=== PATIENT | male | born 1960 | race Caucasian/White ===

== ENCOUNTER 2023-11-01 14:27 | Outpatient (OUT) | payer BC, SELFPAY ==
--- NOTE | 2023-11-01 14:53 | P.CN_ITS ---
Consult Note: HPI Data of Consult Patient: new to practice Requesting Physician: Radha Sellers NP Primary Care Provider: Non-Staff Physician, MD Consult Narrative Reason for consult: bilateral knee pain Narrative: Damien Cao a pleasant 63 year old male presents for evaluation and management of chronic bilateral knee pain. Hx of bilateral knee pain greater than 2 years, reports hx of OA. Last xray imaging unavailable at this time but was completed 2 years ago. Patient notices significant increase in pain with standing and walking periods of time. Finds tylenol and aleve mildly beneficial without side effects. Today pain 2/10 increasing to 7/10 by end of day. No history of injection therapy. Has failed to benefit from HEP greater than 6 weeks. cc:: CC: Radha Sellers NP Review of Systems ROS Status of ROS 10 or more systems reviewed and unremark able except as noted in history and below Musculoskeletal Reports: joint pain Exam Constitutional Documenting provider has reviewed patient's vital signs: yes Common normals: no apparent distress, oriented x3, healthy appearing, alert and well nourished General appearance: cooperative HENMT Common normals: normocephalic, hearing grossly normal bilaterally and moist oral mucous membranes Head and scalp: normocephalic Eye Common normals: PERRL Pupil: PERRL Neck & C-Spine Common normals: full ROM General: normal visual inspection Chest Common normals: inspection of chest normal Respiratory Common normals: normal respiratory effort, no retractions and no use of accessory muscles Extremity Right lower extremity: knee joint Left lower extremity: knee joint Other: left knee enlarged diameter mild edema and moderate crepitus on exam, pain with medial and lateral stress testing, no instability noted right knee mildly enlarged diameter no edema mild crepitus on exam, pain with medial and lateral stress testing, no instability noted Neuro Common normals: oriented x3, CN's II-XII intact bilaterally, moves all extremities, no focal motor deficits, no sensory deficits noted, deep tendon reflexes 2+ bilaterally and gait normal Sensorium/orientation: alert Motor exam: strength 5/5 throughout and no movement abnormalities noted Psych Common normals: mental status grossly normal, thought process normal, cooperative, affect normal, speech normal and activity/motor behavior normal Speech: normal speech Thought process: normal thought process Results Additional Findings Additional findings: If on a controlled substance or opioids, I have checked an [place] report on this patient and there are no aberrancies noted in the prescribing history.??If on a controlled substance or opioid a drug screen was completed and reviewed within the last year, and if there has not been a drug screen completed we ordered one today to monitor higher risk, state monitored pain medication use. As part of providing excellent, safe, comprehensive care, the following was completed at our patient's visit: 1. A medication reconciliation and review to ensure accurate knowledge of current/active medications, including asking our patients to inform us about any [id number] medications or herbal remedies/nutritional supplements/alternative remedies. 2. A review to specifically ensure our patients have had annual screening for screening for depression, screening for tobacco use, and screening for unhealthy alcohol use. For concerning screenings had a discussion with the patient, provided patient education, and recommended follow-up with primary care provider when appropriate. If patient noted with a risk of falling, they received education on strength, gait, and balance training to prevent future risk of falling. Assessment and Plan Assessment and Plan (1) Bilateral primary osteoarthritis of knee: (2) Bilateral knee pain: Plan update bilateral knee xray continue HEP as tolerated, engaged in daily walking program bilateral steroid based knee injections in office with Dr Huang f/u after injection
== END 2023-11-01 14:28 | disposition home or self-care (01) ==
LOC: PM 14:27
PROVIDERS: Visit Provider Nurse Practitioner
DX: M17.0 Bilateral primary osteoarthritis of knee (principal); M25.462 Effusion, left knee; M25.461 Effusion, right knee; M25.561 Pain in right knee; M25.562 Pain in left knee
CPT/HCPCS: 73564; G0463

== ENCOUNTER 2023-11-01 15:11 | Outpatient (OUT) | payer BC, SELFPAY ==
--- NOTE | 2023-11-01 15:16 | XR_ITS ---
[address] [address] Patient Name: LOREN BERMEO MRN: [id number] date: 1960 Sex: M Assigned Patient Location: [facility] Current Patient Location: Accession/Order Number: [id number] Exam Date: 11/01/2023 15:20 Report Date: 11/02/2023 07:19 At the request of: RANDI CASEY Procedure: XR knee PARIAS 4V EXAMINATION: XR knee PARISA 4V HISTORY: bilateral knee osteoarthritis COMPARISON: 10/13/2021 FINDINGS: RIGHT FINDINGS: BONES: No acute fracture or dislocation. Mild to moderate osteoarthropathy of the medial compartment with joint space narrowing marginal osteophyte formation SOFT TISSUES: Negative. No visible soft tissue swelling. OTHER: Small moderate joint effusion LEFT FINDINGS: BONES: No acute fracture or dislocation. Progression of now moderate medial compartmental osteoarthropathy with joint space narrowing marginal osteophyte formation SOFT TISSUES: Negative. No visible soft tissue swelling. OTHER: Moderate joint effusion XR/XR knee PARISA 4V IMPRESSION: RIGHT CONCLUSION: Medial compartment osteoarthritis with joint effusion LEFT CONCLUSION: Medial compartment osteoarthritis with joint effusion Electronically authenticated by: CORDELL PASTOR Date: 11/02/2023 07:19
== END 2023-11-01 15:12 | disposition home or self-care (01) ==
LOC: RAD 15:13
PROVIDERS: PCP Family Medicine; Visit Provider Nurse Practitioner
DX: M17.0 Bilateral primary osteoarthritis of knee (principal); M25.462 Effusion, left knee; M25.461 Effusion, right knee
CPT/HCPCS: 73564

== ENCOUNTER 2023-11-05 14:21 | Outpatient (OUT) | payer BC, SELFPAY ==
--- NOTE | 2023-11-05 15:16 | P.CN_ITS ---
Consult Note: HPI Data of Consult Patient: known to practice within the last 3 years Consult date: 11/05/23 Requesting Physician: Brendon Huang MD Primary Care Provider: CIELO MENDOZA Consult Narrative Reason for consult: bilateral knee pain Narrative: 63yom who presents for in office injection. continues to have significant bilateral knee pain. would like to proceed. cc:: CC: Brendon Huang MD Review of Systems ROS Status of ROS 10 or more systems reviewed and unremark able except as noted in history and below Meds Home Medications and Allergies Home Medications ?Medication ?Instructions ?Recorded ?Confirmed ?Type acetaminophen 500 mg oral powder 1,000 mg PO DAILY 11/01/23 11/01/23 History packet (Tylenol Extra Strength) naproxen sodium 220 mg capsule 440 mg PO DAILY 11/01/23 11/01/23 History (Aleve) Allergies Allergy/AdvReac Type Severity Reaction Status Date / Time No Known Drug Allergies Allergy Verified 11/01/23 15:32 Exam Narrative Exam Narrative: Psych-alert and oriented x 3.? Attentive and appropriate, constitutionally normal, displays normal mood and affect per situation.? There are no obvious deficits in memory, reasoning, or intellect. Extremities-lower extremities are warm with minimal edema and palpable pulses. Knee-examination of the bilateral knee reveals tenderness to palpation over the superior, inferior, lateral, and medial aspect of the knee.? Some swelling is noted without erythema. Pain is elicited with flexion and extension of the knee both actively and passively.? Some grinding is noted with these motions.? There is no notable ligamental laxity or instability.? Coordination remains intact.? Gait remains antalgic. Assessment and Plan Assessment and Plan (1) Bilateral primary osteoarthritis of knee: Plan 63yom who presents for in office injection. risks and benefits reviewed, all questions answered. we agree to proceed. Procedure: Bilateral knee injection Medications: Bupivacaine 0.25% 4cc, kenalog 40mg x2 I explained the details of the procedure to the patient including the risks, benefits and alternatives. We had an informed discussion and the patient verbalized understanding and signed the consent form. All questions were answered appropriately.? A time out was performed.? After obtaining a comfortable seated position, the right knee was prepped with alcohol x3. A syringe containing the above medication was attached to a 25 guage, 1.5 inch needle under strict aseptic technique. The lateral tibial plateau was palpated.? The needle was then advanced through the subcutaneous tissue in a medial and superior direction towards the joint space.? The contents of the syringe were gently injected without any resistance. The needle was removed and pressure was applied to the injection site to decrease the incidence of ecchymosis and hematoma formation.? A sterile bandage was applied. The same procedure was then completed on the opposite side.
== END 2023-11-05 14:22 | disposition home or self-care (01) ==
LOC: PM 14:21
PROVIDERS: PCP Family Medicine; Visit Provider Anesthesiology
DX: M17.0 Bilateral primary osteoarthritis of knee (principal)
CPT/HCPCS: 20610; J0665; J3301